=== PATIENT | male | born 1975 | race Caucasian/White ===

== ENCOUNTER 2019-01-31 18:35 | Emergency (ER) | payer BC ==
[~2019-01-31] VITALS: Ht 182.9 cm; Wt 90.0 kg
[2019-01-31 18:39] VITALS: BP 137/79; TEMP 97
[2019-01-31 19:27] VITALS: PULSE 80
== END 2019-01-31 19:27 | disposition home or self-care (01) ==
LOC: COL.ER 18:35
DX: S61.210A Laceration without foreign body of right index finger without damage to nail, initial encounter (principal); Z23 Encounter for immunization; W26.8XXA Contact with other sharp object(s), not elsewhere classified, initial encounter; Y92.009 Unspecified place in unspecified non-institutional (private) residence as the place of occurrence of the external cause

== ENCOUNTER 2019-02-11 08:13 | Emergency (ER) | payer BC ==
[2019-02-11 08:33] VITALS: BP 115/72; PULSE 73; TEMP 98.1
== END 2019-02-11 08:48 | disposition home or self-care (01) ==
LOC: COL.ER 08:13
DX: S61.210D Laceration without foreign body of right index finger without damage to nail, subsequent encounter (principal); X58.XXXD Exposure to other specified factors, subsequent encounter

== ENCOUNTER 2019-03-31 18:43 | Emergency (ER) | payer BC ==
[~2019-03-31] VITALS: Ht 182.9 cm; Wt 85.9 kg
[2019-03-31 18:54] VITALS: TEMP 98.2
[2019-03-31 19:24] LABS: BASO % 0.2 % (0.0-2.0); EOS # 0.1 (0.0-0.7); EOS % 0.8 % (0-4.0); GRAN # 11.1 (1.4-6.5); GRAN % 71.2 % (42.2-75.2); HEMATOCRIT 44.3 % (42.0-52.0); HEMOGLOBIN 15.2 g/dl (13.5-18.0); LYMPH # 3.2 (1.2-3.4); LYMPH % 20.8 % (20.0-51.0); MEAN CELL VOLUME 89 fl (80.0-100.0); MEAN CORPUSCULAR HEMOGLOBIN 31 pg (27.0-31.0); MEAN CORPUSCULAR HGB CONC 34 g/dl (33.0-37.0); MONO % 6.7 % (1.7-9.3); PLATELET COUNT 258 K/mm3 (130-400); RED BLOOD COUNT 4.96 M/mm3 (4.20-5.60); REDCELL DISTRIBUTION WIDTH-CV 12.5 % (11.5-14.5)
[2019-03-31 19:29] LABS: INR 1.1 (0.8-3.0); PROTHROMBIN TIME 13.4 SECONDS (9.7-12.8)
[2019-03-31 19:34] LABS: ALBUMIN 4.5 gm/dL (3.5-5.0); BILIRUBIN,TOTAL 0.6 mg/dL (0.0-1.0); CALCIUM 9.6 mg/dL (8.4-10.2); CREATININE, serum 0.76 (0.66-1.25); POTASSIUM 3.5 mmol/L (3.4-5.0)
[2019-03-31 20:10] LABS: TROPONIN-I 0.023 ng/mL (0.000-0.035)
[2019-03-31 23:47] VITALS: BP 137/92; PULSE 54
== END 2019-03-31 23:48 | disposition home or self-care (01) ==
LOC: COL.ER 18:43
PROVIDERS: Emergency Medicine
DX: D72.829 Elevated white blood cell count, unspecified (principal); R07.9 Chest pain, unspecified; R20.0 Anesthesia of skin
CPT/HCPCS: J7030; Q9967

== ENCOUNTER 2024-06-07 19:24 | Inpatient (IN) | payer BC ==
[~2024-06-07] VITALS: Ht 182.9 cm; Wt 93.0 kg
[~2024-06-07 19:24] MED LIST changes: -ASPIRIN E.C. 8181 MG PO; -BYSTOLIC10 MG PO; -COZAAR 25MG25 MG/TAB PO; -LIPITOR 80MG80 MG PO; -NITROSTAT0.4 MG/TAB SL; -PLAVIX 75MG TAB75 MG PO; -SEROQUEL 2525 MG/TAB PO; -WELLBUTRIN XL300 M1 PO
[2024-06-07 20:58] LABS: BASO # 0.1 K/mm3 (0.0-0.2); BASO % 0.4 % (0.0-2.0); EOS # 0.2 K/mm3 (0.0-0.7); EOS % 1.3 % (0.0-4.0); GRAN # 8.2 K/mm3 (1.4-6.5); HEMATOCRIT 43.4 % (42.0-52.0); HEMOGLOBIN 14.7 g/dl (13.5-18.0); LYMPH # 4.5 K/mm3 (1.2-3.4); LYMPH % 31.6 % (20.0-51.0); MEAN CELL VOLUME 89 fl (80.0-100.0); MEAN CORPUSCULAR HEMOGLOBIN 30 pg (27-31); MEAN CORPUSCULAR HGB CONC 34 g/dl (33.0-37.0); MEAN PLATELET VOLUME 9.8 fl (7.4-10.4); MONO # 1.2 K/mm3 (0.1-0.6); MONO % 8.3 % (1.7-9.3); PLATELET COUNT 315 K/mm3 (130-400); RED BLOOD COUNT 4.86 M/mm3 (4.20-5.60); REDCELL DISTRIBUTION WIDTH-CV 12.7 % (11.5-14.5)
[2024-06-07 21:16] LABS: ALBUMIN 4.1 g/dL (3.5-5.0); BILIRUBIN,TOTAL 0.4 mg/dL (0.2-1.2); CALCIUM 9.5 mg/dL (8.4-10.2); CREATININE, serum 1.03 mg/dL (0.72-1.25); POTASSIUM 3.5 mEq/L (3.5-4.5); TOTAL PROTEIN 7.3 g/dl (6.2-8.1)
[2024-06-07 21:25] LABS: TROPONIN-I 0.097 ng/mL (0.00-0.033)
[2024-06-07] MEDS ORDERED: Atorvastatin 40 MG TAB PO SCH (22:14)
[2024-06-07] MEDS ORDERED: Morphine 4 MG/ML VIAL IV PRN (22:30)
[2024-06-07] MEDS ORDERED: oxyCODONE 5 MG TAB PO PRN (22:30)
[2024-06-07] MEDS ORDERED: Acetaminophen 325 MG TAB PO PRN (22:30)
[2024-06-07] MEDS ORDERED: Ondansetron 4 MG/2 ML VIAL IV PRN (22:30)
[2024-06-07] MEDS ORDERED: NS 1,000 ML IV SCH (22:30)
[2024-06-07] MEDS ORDERED: BYSTOLIC10 MG PO (22:40)
[2024-06-07] MEDS ORDERED: Albuterol/Ipratropium 3 MG-0.5 MG/3 ML Neb Soln IH SCH (23:00)
[2024-06-07 23:30] LABS: PARTIAL THROMBOPLASTIN TIME 30.2 SECONDS (26.0-37.0)
[2024-06-07] MEDS ORDERED: Heparin 5,000 UNITS/ML 1 ML VIAL IV ONE (23:30)
[2024-06-07] MEDS ORDERED: Heparin/D5W 250 ML IV SCH (23:30)
[2024-06-07] MEDS ORDERED: Heparin 5,000 UNITS/ML 1 ML VIAL IV PRN (23:30)
[2024-06-07] MEDS ORDERED: Albuterol/Ipratropium 3 MG-0.5 MG/3 ML Neb Soln IH PRN (23:45)
[2024-06-08] VITALS (23 sets, daily range): BP systolic 111–145; BP diastolic 67–89; PULSE 52–62; TEMP 97.6–98.2
[2024-06-08] MEDS ORDERED: SEROQUEL 2525 MG/TAB PO (00:23)
[2024-06-08] MEDS ORDERED: WELLBUTRIN XL300 M1 PO (00:23)
--- NOTE | 2024-06-08 01:43 | NUR ---
patient arrived from ED around 0030, alert and oriented x4. ambulates with steady gait. denies chest pain and shortness of breath. IV in RAC is patent, new IV started in , also patent, both sites CDI. heparing gtt running at 10 ml/hr in [facility] IV, NS running at 50 ml/hr in IV. no remarkable skin findings. call light within reach. pt has no further needs, questions or concerns at this time.
[2024-06-08 04:33] LABS: BASO % 0.3 % (0.0-2.0); EOS # 0.2 K/mm3 (0.0-0.7); EOS % 1.7 % (0.0-4.0); GRAN # 6.8 K/mm3 (1.4-6.5); GRAN % 48.4 % (42.2-75.2); HEMOGLOBIN 14.1 g/dl (13.5-18.0); LYMPH # 5.9 K/mm3 (1.2-3.4); LYMPH % 41.5 % (20.0-51.0); MEAN CELL VOLUME 87 fl (80.0-100.0); MEAN CORPUSCULAR HEMOGLOBIN 30 pg (27-31); MEAN CORPUSCULAR HGB CONC 34 g/dl (33.0-37.0); MEAN PLATELET VOLUME 10.2 fl (7.4-10.4); MONO # 1.1 K/mm3 (0.1-0.6); MONO % 7.7 % (1.7-9.3); PLATELET COUNT 270 K/mm3 (130-400); REDCELL DISTRIBUTION WIDTH-CV 12.6 % (11.5-14.5)
[2024-06-08 04:48] LABS: CALCIUM 8.6 mg/dL (8.4-10.2); CREATININE, serum 0.85 mg/dL (0.72-1.25); POTASSIUM 3.9 mEq/L (3.5-4.5)
[2024-06-08 04:50] LABS: CHOLESTEROL RISK RATIO 5.3
[2024-06-08 05:10] LABS: THYROID STIMULATING HORMONE 2.407 uIU/mL (0.350-4.940)
--- NOTE | 2024-06-08 06:50 | NUR ---
PT RESTING IN BED. PT IS ON RA. PT IS SB ON TELE. PT IS ON HEPARIN DRIP 9ML/HR AND NEXT XA IS AT 1100. PT IS AXOX4 AND HAS CALL LIGHT WITHIN REACH. PT INSTSRUCTED TO CALL WITH ALL NEEDS.
--- NOTE | 2024-06-08 08:00 | NUR ---
KARIE ARROYO WITH CARDIOLOGY NOTIFIED OF CONSULT.
[2024-06-08] MEDS ORDERED: Nebivolol 10 MG **** subs to Bisoprolol 10 MG PO SCH (09:00)
[2024-06-08] MEDS ORDERED: Sennosides/Docusate 8.6-50 MG TAB PO SCH (09:00)
[2024-06-08] MEDS ORDERED: Bisoprolol 5 MG TAB PO SCH (09:00)
[2024-06-08] MEDS ORDERED: 1/2 NS 1,000 ML IV SCH ×2 (09:30→13:15)
[2024-06-08 09:56] LABS: URINE APPEARANCE CLEAR (CLEAR/HAZY); URINE BLOOD NEGATIVE (NEGATIVE); URINE COLOR YELLOW (YELLOW); URINE GLUCOSE NEGATIVE (NEGATIVE); URINE KETONE NEGATIVE (NEGATIVE); URINE NITRATE NEGATIVE (NEGATIVE); URINE PROTEIN(semi-quant) NEGATIVE (NEGATIVE); URINE UROBILINOGEN 0.2 E.U/dL (0.2-1.0)
[2024-06-08 10:09] LABS: COLLECTION METHOD CLEAN CATCH
[2024-06-08] MEDS ORDERED: Clopidogrel 300 MG DOSE (75 mg x 4 tabs) PO ONE (10:15)
--- NOTE | 2024-06-08 11:41 | NUR ---
PT BEING TAKEN DOWN TO FARM EQUIPMENT TECHNICIAN BY MAYA ARROYO.
[2024-06-08] MEDS ORDERED: NS IV SCH (12:43)
[2024-06-08] MEDS ORDERED: BIVALIRUDIN IV SCH (12:43)
[2024-06-08] MEDS ORDERED: Heparin 1,000 UNITS/ML 10 ML Multi-Dose VIAL IA SCH (12:44)
[2024-06-08] MEDS ORDERED: Nitroglycerin 100 MCG/ML (Cath Lab) 10 ML VIAL IA SCH (12:48)
[2024-06-08] MEDS ORDERED: Midazolam 2 MG/2 ML VIAL IV SCH (12:50)
[2024-06-08] MEDS ORDERED: Iohexol 350 - 100 ML VIAL INCOR ONE (13:09)
[2024-06-08] MEDS ORDERED: niCARdipine (Cath Lab) 100 MCG/ML 10 ML VIAL INCOR SCH (13:10)
[2024-06-08] MEDS ORDERED: fentaNYL 50 MCG/ML 2 ML VIAL IV SCH (13:11)
--- NOTE | 2024-06-08 13:32 | NUR ---
Please see merge document for record of left heart cath with DR. Gill. Marquise has been transferred back to medical floor rm [id number]. He is awake and alert, pwd with reg and unlabored respirations. TR band to rt wrist, cms intact distal, no evidence of bleeding. bs report and handoff of care to Michelle ARROYO.
--- NOTE | 2024-06-08 13:42 | NUR ---
1325-PT RETURNED FROM ENERGY AND CONSERVATION TECHNICIAN. PT IS AWAKE BUT SLEEPY. VSS. PT SR ON TELE. PT HAS ANGIOMAX RUNNING UNTIL 1455. TR BAND TO R RADIAL SITE WITH 15ML AIR. NO DRAINAGE OR HEMATOMA NOTED. WATER GIVEN. PT AND INSTRUCTED ON HOW TO ORDER LUNCH. PT INSTRUCTED TO CALL IF ANY PAIN, BLEEDING, HEMATOMA, OR ANY NEEDS.
--- NOTE | 2024-06-08 15:02 | NUR ---
Coin Machine Supervisor met with patient and his , Tamy (ph#[phone]) to discuss discharge planning. Patient lives in [place] and sees Dr. Fu for primary care. Patient gets his medications from [facility] and does not use any DME. Patient is independent with ADLS and plans to return home at time of discharge. Patient was interested in completing DPOA-[facility], which DAWN provided assistance with. Patient designated his and their daughter, Melina. DAWN and CRUZ Richard provided witness signature. DAWN placed copy in chart then provided original and copy to patient. Discharge Plan: Home
--- NOTE | 2024-06-08 18:10 | NUR ---
WHEN THE FINAL BIT OF AIR REMOVED FROM TR BAND SLIGHT BLEEDING NOTED. 3MLS OF AIR REINSTILLED.
[2024-06-08] MEDS ORDERED: Atorvastatin 80 MG TAB PO SCH (21:00)
[2024-06-09] VITALS (8 sets, daily range): BP systolic 110–125; BP diastolic 75–79; PULSE 54–56; TEMP 97.5–98.1
--- NOTE | 2024-06-09 03:58 | NUR ---
PATIENT ASLEEP, RESTING IN BED. PATIENT EASILY AROUSES TO NAME. BANDAID TO RRADIAL HEART CATH SITE CDI, SITE SOFT WITH NO HEMATOMA OR BLEEDING. CALL LIGHT WITHIN REACH,. PATINT VOICES NO NEEDS OR COMPLAINTS AT THIS TIME.
--- NOTE | 2024-06-09 07:05 | NUR ---
BEDSIDE SHIFT REPORT GIVEN TO AARON ARROYO. PATIENT ASLEEP RESTING IN BED, AROUSES EASILY TO NAME. R RADIAL CATH SITE CDI WITH NO HEMATOMA. CALL LIGHT WITHIN REACH.
[2024-06-09 07:38] LABS: BASO % 0.3 % (0.0-2.0); EOS # 0.2 K/mm3 (0.0-0.7); EOS % 1.5 % (0.0-4.0); GRAN # 8.8 K/mm3 (1.4-6.5); GRAN % 67.5 % (42.2-75.2); HEMATOCRIT 42.2 % (42.0-52.0); HEMOGLOBIN 14.4 g/dl (13.5-18.0); LYMPH # 2.9 K/mm3 (1.2-3.4); LYMPH % 22.2 % (20.0-51.0); MEAN CELL VOLUME 88 fl (80.0-100.0); MEAN CORPUSCULAR HEMOGLOBIN 30 pg (27-31); MEAN CORPUSCULAR HGB CONC 34 g/dl (33.0-37.0); MEAN PLATELET VOLUME 10.3 fl (7.4-10.4); MONO # 1.1 K/mm3 (0.1-0.6); PLATELET COUNT 278 K/mm3 (130-400); RED BLOOD COUNT 4.79 M/mm3 (4.20-5.60); REDCELL DISTRIBUTION WIDTH-CV 12.8 % (11.5-14.5)
[2024-06-09 07:54] LABS: CALCIUM 9.1 mg/dL (8.4-10.2); CREATININE, serum 0.83 mg/dL (0.72-1.25); POTASSIUM 3.9 mEq/L (3.5-4.5)
[2024-06-09] MEDS ORDERED: Bisoprolol 5 MG TAB PO SCH (09:00)
[2024-06-09] MEDS ORDERED: Clopidogrel 75 MG TAB PO SCH (09:00)
--- NOTE | 2024-06-09 09:00 | NUR ---
Patient awake, alert and oriented. Denies pain, shortness of breath or nausea. Right radial site clean/dry/intact with no hematoma, no tenderness. Sitting in chair, at the bedside. Call light within reach.
[2024-06-09] MEDS ORDERED: LIPITOR 80MG80 MG PO (10:02)
[2024-06-09] MEDS ORDERED: PLAVIX 75MG TAB75 MG PO (10:02)
--- NOTE | 2024-06-09 10:02 | NUR ---
Follow-up visit; Moises and his thanked Manager [employer] for looking in on him today and wishing him well. Patient states he is doing much better today and hopes to be discharged. Manager [employer] expressed her blessing to meet them.
[2024-06-09] MEDS ORDERED: ASPIRIN E.C. 8181 MG PO (10:03)
[2024-06-09] MEDS ORDERED: NITROSTAT0.4 MG/TAB SL (10:03)
[2024-06-09] MEDS ORDERED: COZAAR 25MG25 MG/TAB PO (10:05)
--- NOTE | 2024-06-09 10:12 | NUR ---
Pt c/o left shoulder pain, tingling down arm and flushed in left side of face. Dr. Mares notified, provider to the room at this time.
--- NOTE | 2024-06-09 10:24 | NUR ---
Reviewed risk factors for heart disease. Covered applicable modifiable risk factors including the following: tobacco cessation, HTN, hyperlipidemia, diabetes, overweight/obesity, sedentary lifestyle, and stress/depression. Patient verbalized understanding. Referral sent to [facility] with patient's permission. Staff will follow up via phone on Friday, to scheduled initial appointment.
--- NOTE | 2024-06-09 15:10 | NUR ---
Patient discharged to home, picked up by daughter. Educated on discharge instructions and new medications, pt verbalized understanding. All belongings sent home with patient. Assisted out to car by nursing staff.
== END 2024-06-09 15:12 | disposition home or self-care (01) | DRG 322 ==
LOC: COL.ER 19:24 → MEDICAL 22:00 → COL.ER 22:25 → MEDICAL 23:50
PROVIDERS: Nurse Practitioner; Physician Assistant; ADMIT Internal Medicine
PROC: 027034Z Dilation of Coronary Artery, One Artery with Drug-eluting Intraluminal Device, Percutaneous Approach (ICD-10-PCS; principal; 2024-06-09)
PROC: 4A023N7 Measurement of Cardiac Sampling and Pressure, Left Heart, Percutaneous Approach (ICD-10-PCS; 2024-06-09)
PROC: B2111ZZ Fluoroscopy of Multiple Coronary Arteries using Low Osmolar Contrast (ICD-10-PCS; 2024-06-09)
DX: I21.4 Non-ST elevation (NSTEMI) myocardial infarction (principal); I10 Essential (primary) hypertension; F41.9 Anxiety disorder, unspecified; G47.00 Insomnia, unspecified; D72.829 Elevated white blood cell count, unspecified; E78.5 Hyperlipidemia, unspecified; I25.10 Atherosclerotic heart disease of native coronary artery without angina pectoris
CPT/HCPCS: C1725; C1769; C1874; C1887; C9600; G0378; J0583; J1644; J2250; J2404; J3010; J7030; Q9967

== ENCOUNTER → 2024-06-07 | Outpatient (CLI) | payer BC ==
[~2024-06-07] MED LIST: ASPIRIN E.C. 8181 MG PO; BYSTOLIC10 MG PO; COZAAR 25MG25 MG/TAB PO; HYZAAR 50-12.1 UDTAB PO; LIPITOR 80MG80 MG PO; NITROSTAT0.4 MG/TAB SL; PLAVIX 75MG TAB75 MG PO; SEROQUEL 2525 MG/TAB PO; WELLBUTRIN 75MG75 MG PO; WELLBUTRIN XL300 M1 PO
[2024-06-07 17:42] LABS: BASO % 0.3 % (0.0-2.0); EOS # 0.1 K/mm3 (0.0-0.7); GRAN # 8.8 K/mm3 (1.4-6.5); GRAN % 63.2 % (42.2-75.2); HEMATOCRIT 42.6 % (42.0-52.0); HEMOGLOBIN 14.9 g/dl (13.5-18.0); LYMPH # 3.9 K/mm3 (1.2-3.4); MEAN CELL VOLUME 87 fl (80.0-100.0); MEAN CORPUSCULAR HEMOGLOBIN 30 pg (27-31); MEAN CORPUSCULAR HGB CONC 35 g/dl (33.0-37.0); MEAN PLATELET VOLUME 10.2 fl (7.4-10.4); MONO % 7.1 % (1.7-9.3); PLATELET COUNT 302 K/mm3 (130-400); REDCELL DISTRIBUTION WIDTH-CV 12.6 % (11.5-14.5)
[2024-06-07 17:51] LABS: ERYTHROCYTE SEDIMENTATION RATE 8 mm/hr (0-15)
[2024-06-07 18:00] LABS: ALBUMIN 4.2 g/dL (3.5-5.0); BILIRUBIN,TOTAL 0.4 mg/dL (0.2-1.2); C-REACTIVE PROTEIN 0.1 mg/dL (0.00-0.50); CALCIUM 9.3 mg/dL (8.4-10.2); CREATININE, serum 0.96 mg/dL (0.72-1.25); POTASSIUM 3.9 mEq/L (3.5-4.5); TOTAL PROTEIN 7.4 g/dl (6.2-8.1)
[2024-06-07 18:29] LABS: TROPONIN-I 0.118 ng/mL (0.00-0.033)
== END ==
LOC: COL.LAB 15:18 → EDSTATUS 15:22 → COL.LAB 15:23
PROVIDERS: Family Medicine
DX: I10 Essential (primary) hypertension (principal)

== ENCOUNTER 2024-08-11 14:03 | Outpatient (RCR) | payer BC ==
[~2024-08-11 14:03] MED LIST changes: +ASPIRIN E.C. 8181 MG PO; +BYSTOLIC10 MG PO; +COZAAR 25MG25 MG/TAB PO; +LIPITOR 80MG80 MG PO; +NITROSTAT0.4 MG/TAB SL; +PLAVIX 75MG TAB75 MG PO; +SEROQUEL 2525 MG/TAB PO; +WELLBUTRIN XL300 M1 PO
== END 2024-08-12 | disposition home or self-care (01) ==
LOC: COL.CR
DX: Z02.89 Encounter for other administrative examinations (principal)